=== PATIENT | female | born 1975 | race Two or more races ===

== ENCOUNTER → 2017-05-02 11:14 | Outpatient (CLI) | payer OTHER ==
[~2017-05-02] VITALS: Ht 152.4 cm; Wt 95.3 kg
[~2017-05-02 11:14] MED LIST: GILTUSS TR TAB1 EACH PO; TOBREX5 ML OP
== END | disposition home or self-care (01) ==
LOC: PPHC 11:14
DX: R05 Cough (principal)

== ENCOUNTER → 2017-05-26 | Outpatient (CLI) | payer OTHER ==
[~2017-05-26] VITALS: Ht 152.4 cm; Wt 95.3 kg
== END | disposition home or self-care (01) ==
LOC: PPHC 10:01
DX: R05 Cough (principal); R09.81 Nasal congestion

== ENCOUNTER 2017-06-12 09:51 | Emergency (ER) | payer OTHER ==
[~2017-06-12] VITALS: Ht 175.3 cm; Wt 99.8 kg
[2017-06-12] MEDS ORDERED: TUSSI PRES-B L120 M1 PO (12:00)
[2017-06-12] MEDS ORDERED: OSEL75CA PO (12:00)
== END 2017-06-12 12:39 | disposition home or self-care (01) ==
LOC: ER 09:51
DX: J11.1 Influenza due to unidentified influenza virus with other respiratory manifestations (principal); B34.9 Viral infection, unspecified

== ENCOUNTER 2018-06-08 10:08 | Outpatient (CLI) | payer OTHER ==
[~2018-06-08 10:08] MED LIST changes: +OSEL75CA PO; +TUSSI PRES-B L120 M1 PO
== END 2018-06-08 11:17 | disposition home or self-care (01) ==
LOC: LAB 10:08
DX: J11.1 Influenza due to unidentified influenza virus with other respiratory manifestations (principal); J06.9 Acute upper respiratory infection, unspecified

== ENCOUNTER 2019-10-21 09:54 | Outpatient (CLI) | payer OTHER | END 2019-10-21 15:00 | disposition home or self-care (01) | LOC: LAB 09:54 | DX: J11.1 Influenza due to unidentified influenza virus with other respiratory manifestations (principal); Z20.828 Contact with and (suspected) exposure to other viral communicable diseases; R05 Cough; R53.81 Other malaise ==

== ENCOUNTER 2020-08-26 12:40 | Outpatient (CLI) | payer OTHER | END 2020-08-26 12:49 | disposition home or self-care (01) | LOC: SONOGRAMA 12:40 → MAMO-SONO 13:45 | DX: E03.8 Other specified hypothyroidism (principal) ==

== ENCOUNTER 2020-09-08 13:10 | Outpatient (CLI) | payer OTHER | END 2020-09-08 13:23 | disposition home or self-care (01) | LOC: SONOGRAMA 13:10 | PROVIDERS: ATTEND Specialist | DX: R10.31 Right lower quadrant pain (principal); R10.32 Left lower quadrant pain ==

== ENCOUNTER 2020-09-10 08:26 | Outpatient (CLI) | payer OTHER | END 2020-09-10 08:37 | disposition home or self-care (01) | LOC: TOM 08:26 | DX: D34 Benign neoplasm of thyroid gland (principal) ==

== ENCOUNTER 2021-07-20 15:51 | Outpatient (CLI) | payer OTHER | END 2021-07-20 15:52 | disposition home or self-care (01) | LOC: RAD 15:51 | DX: R05.9 Cough, unspecified (principal); R09.3 Abnormal sputum; F17.200 Nicotine dependence, unspecified, uncomplicated ==

== ENCOUNTER 2021-09-01 07:08 | Outpatient (CLI) | payer OTHER | END 2021-09-01 07:10 | disposition home or self-care (01) | LOC: RAD 07:08 | DX: M54.2 Cervicalgia (principal); R51.9 Headache, unspecified; M62.830 Muscle spasm of back; E04.1 Nontoxic single thyroid nodule ==

== ENCOUNTER 2021-09-30 08:11 | Outpatient (CLI) | payer OTHER | END 2021-09-30 08:13 | disposition home or self-care (01) | LOC: SONOGRAMA 08:11 | PROVIDERS: ATTEND Pathology Anatomic Pathology & Clinical Pathology | DX: E04.1 Nontoxic single thyroid nodule (principal) ==

== ENCOUNTER 2022-05-27 08:31 | Outpatient (CLI) | payer OTHER | END 2022-05-27 08:37 | disposition home or self-care (01) | LOC: SONOGRAMA 08:31 | DX: D25.9 Leiomyoma of uterus, unspecified (principal); D50.9 Iron deficiency anemia, unspecified ==

== ENCOUNTER 2022-06-01 07:27 | Outpatient (CLI) | payer OTHER | END 2022-06-01 07:30 | disposition home or self-care (01) | LOC: SONOGRAMA 07:27 | DX: R05.9 Cough, unspecified (principal); R09.3 Abnormal sputum; F17.200 Nicotine dependence, unspecified, uncomplicated; C73 Malignant neoplasm of thyroid gland ==

== ENCOUNTER → 2022-06-13 | Outpatient (CLI) | payer OTHER | END | disposition home or self-care (01) | LOC: SONOGRAMA 13:35 | PROVIDERS: ATTEND Pathology Anatomic Pathology & Clinical Pathology | DX: E04.1 Nontoxic single thyroid nodule (principal); C73 Malignant neoplasm of thyroid gland ==

== ENCOUNTER 2022-08-04 16:37 | Emergency (ER) | payer OTHER ==
[~2022-08-04] VITALS: Ht 175.3 cm; Wt 102.1 kg
[2022-08-04] MEDS ORDERED: SYNTHROID200 MCG PO (17:37)
[2022-08-04] MEDS ORDERED: METFORMIN HCL500 M3 PO (17:38)
[2022-08-04] MEDS ORDERED: IPRAT-ALBUT 0.5-3 ML IH (22:24)
[2022-08-04] MEDS ORDERED: TUSNEL LIQUID178 ML PO (22:24)
[2022-08-04] MEDS ORDERED: ZYRTEC10 M3 PO (22:24)
[2022-08-04] MEDS ORDERED: DOLOGEN CAPLET1 EACH PO (22:24)
[2022-08-04] MEDS ORDERED: ZITHROMAX500 MG PO (22:24)
== END 2022-08-04 22:39 | disposition home or self-care (01) ==
LOC: ER 16:37
DX: B34.9 Viral infection, unspecified (principal); E11.9 Type 2 diabetes mellitus without complications; Z79.84 Long term (current) use of oral hypoglycemic drugs; I10 Essential (primary) hypertension; Z20.822 Contact with and (suspected) exposure to COVID-19

== ENCOUNTER 2023-02-14 07:28 | Outpatient (CLI) | payer OTHER ==
[~2023-02-14 07:28] MED LIST changes: +DOLOGEN CAPLET1 EACH PO; +IPRAT-ALBUT 0.5-3 ML IH; +METFORMIN HCL500 M3 PO; +SYNTHROID200 MCG PO; +TUSNEL LIQUID178 ML PO; +ZITHROMAX500 MG PO; +ZYRTEC10 M3 PO
== END 2023-02-14 07:39 | disposition home or self-care (01) ==
LOC: SONOGRAMA 07:28
PROVIDERS: ATTEND Student in an Organized Health Care Education/Training Program
DX: C73 Malignant neoplasm of thyroid gland (principal)

== ENCOUNTER 2023-05-11 06:28 | Emergency (ER) | payer OTHER ==
[~2023-05-11] VITALS: Ht 175.3 cm; Wt 108.9 kg
[2023-05-11 09:28] LABS: HEMOGLOBIN 9.3 g/dL (12.0-15.00); MEAN CORPUSCULAR HEMOGLOBIN 20.1 pg (27.00-32.0); PLATELET COUNT 253 K/uL (150-450); RED BLOOD COUNT 4.61 M/uL (4.00-6.00); RED CELL DISTRIBUTION WIDTH 17.9 % (11.5-14.5)
== END 2023-05-11 11:52 | disposition home or self-care (01) ==
LOC: ER 06:29
PROVIDERS: General Practice
DX: U07.1 COVID-19 (principal); R53.81 Other malaise; I10 Essential (primary) hypertension; E11.9 Type 2 diabetes mellitus without complications; Z79.84 Long term (current) use of oral hypoglycemic drugs

== ENCOUNTER 2023-05-22 09:54 | Outpatient (CLI) | payer OTHER | END 2023-05-22 09:58 | disposition home or self-care (01) | LOC: SONOGRAMA 09:54 | PROVIDERS: ATTEND Pathology Anatomic Pathology & Clinical Pathology | DX: C73 Malignant neoplasm of thyroid gland (principal); R59.0 Localized enlarged lymph nodes ==

== ENCOUNTER 2024-03-11 10:49 | Emergency (ER) | payer OTHER ==
[~2024-03-11] VITALS: Ht 175.3 cm; Wt 105.2 kg
[2024-03-11] MEDS ORDERED: IRON236 MG (12:12)
[2024-03-11] MEDS ORDERED: BUTALB/ACETAMINOPHEN/CAFFEINE 1 TAB TABLET PO ONE (15:30)
[2024-03-11 16:14] LABS: HEMATOCRIT 31.7 % (36.0-45.00); HEMOGLOBIN 9.7 g/dL (12.0-15.00); MEAN CORPUSCULAR HEMOGLOBIN 19.3 pg (27.00-32.0); MEAN CORPUSCULAR HGB CONC 30.5 g/dl (32.0-36.0); PLATELET COUNT 311 K/uL (150-450); RED BLOOD COUNT 5.02 M/uL (4.00-6.00); RED CELL DISTRIBUTION WIDTH 18.4 % (11.5-14.5)
[2024-03-11 16:15] LABS: MEAN CELL VOLUME 63.2 fL (80.00-100.00)
[2024-03-11 16:27] LABS: CALCIUM 9.1 mg/dL (8.5-10.1); CREATININE SERUM 0.96 mg/dL (0.55-1.02); GFR 62.03; POTASSIUM 4.2 mEq/L (3.5-5.1)
== END 2024-03-11 17:51 | disposition home or self-care (01) ==
LOC: ER 10:51
PROVIDERS: Nurse Practitioner Family
DX: R20.2 Paresthesia of skin (principal); G44.209 Tension-type headache, unspecified, not intractable; Z20.822 Contact with and (suspected) exposure to COVID-19; I10 Essential (primary) hypertension; E03.8 Other specified hypothyroidism; E11.9 Type 2 diabetes mellitus without complications

== ENCOUNTER 2024-04-30 07:09 | Outpatient (CLI) | payer OTHER ==
[~2024-04-30 07:09] MED LIST changes: +IRON236 MG
== END 2024-04-30 07:21 | disposition home or self-care (01) ==
LOC: SONOGRAMA 07:09
PROVIDERS: ATTEND Student in an Organized Health Care Education/Training Program
DX: C73 Malignant neoplasm of thyroid gland (principal)

== ENCOUNTER 2024-08-08 14:12 | Outpatient (CLI) | payer OTHER | END 2024-08-12 14:14 | disposition home or self-care (01) | LOC: SONOGRAMA 14:12 | PROVIDERS: ATTEND Pathology Anatomic Pathology & Clinical Pathology | DX: R59.0 Localized enlarged lymph nodes (principal); E04.2 Nontoxic multinodular goiter ==

== ENCOUNTER 2025-02-25 11:35 | Outpatient (CLI) | payer OTHER | END 2025-02-25 11:43 | disposition home or self-care (01) | LOC: SONOGRAMA 11:35 | DX: G56.00 Carpal tunnel syndrome, unspecified upper limb (principal); E89.0 Postprocedural hypothyroidism; Z85.850 Personal history of malignant neoplasm of thyroid ==